=== PATIENT | male | born 1990 | race American Indian/Alaskan Native ===

== ENCOUNTER 2019-03-08 16:42 | Emergency (ER) | payer SELFPAY ==
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
[2019-03-08] MEDS ORDERED: DILAUDID IV ONE (18:23)
[2019-03-08] MEDS ORDERED: DILAUDID ONE (18:26)
--- NOTE | 2019-03-08 19:03 | XRay Report ---
PROCEDURE: XR SHOULDER 2+V LT TECHNIQUE: Frontal and Y views left shoulder HISTORY: shoulder pain and deformity COMPARISONS: None FINDINGS: There is a comminuted and displaced fracture of the middle third of the left clavicle. The shoulder joints are maintained. IMPRESSION: 1. Comminuted and displaced fracture middle third left clavicle. This document is electronically signed by Nitza Horvath MD., March 08 2019 07:01:39 PM ET
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
--- NOTE | 2019-03-08 19:52 | XRay Report ---
PROCEDURE: XR RIBS UNILAT 2V LT TECHNIQUE: 3 views obtained of the left rib cage HISTORY: rib pain COMPARISONS: No priors FINDINGS: No radiographic evidence of acute left rib cage fracture. No evidence is seen of pneumothorax or hemothorax IMPRESSION: No evidence of acute left rib cage fracture or pneumothorax. The. This document is electronically signed by Ibrahima Richards MD., March 08 2019 07:50:35 PM ET
[2019-03-08 21:08] VITALS: BP 124/73
== END 2019-03-08 21:08 | disposition home or self-care (01) ==
LOC: ED 16:42
DX: S42.022A Displaced fracture of shaft of left clavicle, initial encounter for closed fracture (principal); S20.212A Contusion of left front wall of thorax, initial encounter; R07.81 Pleurodynia; M25.512 Pain in left shoulder; V09.29XA Pedestrian injured in traffic accident involving other motor vehicles, initial encounter; Y93.89 Activity, other specified; Y92.488 Other paved roadways as the place of occurrence of the external cause; Y99.8 Other external cause status
CPT/HCPCS: 71045; 71100; 73030; 96374; 99284; J1170